=== PATIENT | female | born 1945 | race Caucasian/White ===

== ENCOUNTER 2017-02-09 15:44 | Emergency (ER) | payer MEDICARE, OTHER ==
[~2017-02-09] VITALS: Ht 160 cm; Wt 70.0 kg
[2017-02-09 16:09] VITALS: BP 158/70; PULSE 76; RESP 17; TEMP 97.8; O2SAT 96
--- NOTE | 2017-02-09 16:18 | PD ---
HPI Chief Complaint: Fall Time Seen by Provider: 16:14 Travel History International Travel<30 days: No Contact w/Intl Traveler<30days: No Traveled to known affect area: No History of Present Illness HPI 71-year-old female with history of stroke, aphasia, and inability to move extremities, is brought to emergency department status post witnessed fall from wheelchair all nursing staff were changing her bed. Patient fell forward and sideways out of the wheelchair onto the floor, injuring her anterior forehead and apparently her right upper cheek. Patient is unable to complain or tell me if pain. She is otherwise at her baseline. She is allergic to Haldol. PFSH Past Medical History ?: Not Social History Alcohol Use: No Tobacco Use: No Substance Use: No Allergies-Medications (Allergen,Severity, Reaction): Coded Allergies: Haldol (Verified Allergy, Unknown, unknown, 02/09/17) Reported Meds & Prescriptions Reported Meds & Active Scripts Active Reported Humulin R Inj (Insulin Human Regular) 1,000 Unit/10 Ml Vial 5 Units SQ HS Dulcolax Supp (Bisacodyl) 10 Mg Supp 10 Mg RECTAL DAILY PRN Milk of Magnesia Liq (Magnesium Hydroxide) 400 Mg/5 Ml Susp 30 Ml PO HS PRN Enema Disposable (Sodium Phosphates) 1 Sully Sully 1 Applic RECTAL DAILY PRN Citroma Liq (Magnesium Citrate) 300 Ml Liq 300 Ml PO DAILY PRN Amlodipine-Atorvastatin 10-10 Mg Tab 1 Tab G-TUBE HS Aspirin Adult Low Strength (Aspirin) 81 Mg Tabdr 81 Mg G-TUBE DAILY Galantamine (Galantamine Hydrobromide) 8 Mg Tab 8 Mg G-TUBE DAILY IN THE PM Multivitamin Liq (Multiple Vitamins W/ Minerals Liq) 1 Liq Liq 5 Ml G-TUBE DAILY Tylenol (Acetaminophen) 325 Mg Tab 650 Mg PO Q4H PRN Lactobacillus Acidophilus 1 Tab Tab 1 Tab G-TUBE BID Namenda (Memantine) 10 Mg Tab 10 Mg G-TUBE BID Metformin (Metformin HCl) 500 Mg Tab 500 Mg G-TUBE BID With meals Review of Systems ROS Limitations: Unresponsive Except as stated in HPI: all other systems reviewed are Neg General / Constitutional: No: Fever Eyes: No: Visual changes HENT: No: Headaches Cardiovascular: No: Chest Pain or Discomfort Respiratory: No: Shortness of Breath Gastrointestinal: No: Abdominal Pain Genitourinary: No: Dysuria Musculoskeletal: No: Pain Skin: No Rash Neurologic: No: Weakness Psychiatric: No: Depression Endocrine: No: Polydipsia Hematologic/Lymphatic: No: Easy Bruising Physical Exam Exam Limitations: Clinical Condition Narrative GENERAL: Patient is at her baseline unresponsive. She does open her eyes and focus. She grimaces with pain with palpation of the bump on the right forehead. SKIN: Warm and dry. No open wounds or abrasions. Normal color. Normal turgor. Patient has a large swollen ecchymosis to the right upper forehead and question right upper cheek HEAD: Normocephalic. CT scan. EYES: Pupils equal and round. No scleral icterus. No injection or drainage. ENT: No nasal bleeding or discharge. I'm unable to open the patient's mouth for inspection. NECK: Trachea midline. No JVD. No obvious bony tenderness or step-off. Range of motion limited due to patient's clinical condition. CARDIOVASCULAR: Regular rate and rhythm. RESPIRATORY: No accessory muscle use. Clear to auscultation. Breath sounds equal bilaterally. GASTROINTESTINAL: Abdomen soft, non-tender, nondistended. Hepatic and splenic margins not palpable. MUSCULOSKELETAL: Extremities without clubbing, cyanosis, or edema. No obvious deformities. No obvious signs of fracture or dislocation to upper or lower extremities. NEUROLOGICAL: Awake and alert. No obvious cranial nerve deficits. Patient does not move her extremities normally secondary to previous CVA. She is aphasic. PSYCHIATRIC: Unable to be assessed. Data Data Last Documented VS Vital Signs Date Time Temp Pulse Resp B/P Pulse Ox O2 Delivery O2 Flow Rate FiO2 02/09/17 16:15 Room Air 02/09/17 16:09 97.8 76 17 158/[address] Brain W/O Iv Contrast(Rout) (02/09/17 16:10) Ct Cerv Spine W/O Contrast (02/09/17 16:10) Ct Facial Bones W/O Iv Cont (02/09/17 16:10) [facility] Medical Decision Making Medical Screen Exam Complete: Yes Emergency Medical Condition: Yes Differential Diagnosis Fall from wheelchair. Head contusion. Intracranial bleed. Facial fracture. Neck fracture. Narrative Course Patient is medically stable at time of exam. CT of the head and neck and facial bones are ordered. Further lab work not felt warranted based on the history. Head CT shows large hematoma to the right anterior forehead, but no acute intracranial bleed or fracture. CT of the neck and facial bones are negative per radiologist. Patient felt stable to be discharged back to nursing facility. No change in medications is warranted. Patient be followed by her primary care physician or return to the emergency department as needed. Diagnosis Primary Impression: Fall involving wheelchair as cause of accidental injury Qualified Code: W05.0XXA - Fall involving wheelchair as cause of accidental injury, initial encounter Additional Impression: Contusion of scalp, initial encounter Referrals: Primary Care Physician Patient Instructions: General Instructions, Scalp Contusion in Adults (ED) Additional Instructions: Head CT shows large hematoma to the right anterior forehead, but no acute intracranial bleed or fracture. CT of the neck and facial bones are negative per radiologist. Patient felt stable to be discharged back to nursing facility. No change in medications is warranted. Patient be followed by her primary care physician or return to the emergency department as needed. Med/Other Pt SpecificInfo: No Change to Meds, No Meds Exist/No RX given Disposition: 03 DISCHARGE TO SNF Condition: Stable Tahir Diehl Feb 09, 2017 16:18
[2017-02-09] MEDS ORDERED: ASPI1TAB91 G-TUBE (16:35)
[2017-02-09] MEDS ORDERED: INSU100V2 SQ (16:35)
[2017-02-09] MEDS ORDERED: GALA8TAB G-TUBE (16:35)
[2017-02-09] MEDS ORDERED: MILKSUS G-TUBE (16:35)
[2017-02-09] MEDS ORDERED: AMLO1TAB34 G-TUBE (16:35)
[2017-02-09] MEDS ORDERED: CITRSOL4 PO (16:35)
[2017-02-09] MEDS ORDERED: MULTLIQ7 G-TUBE (16:35)
[2017-02-09] MEDS ORDERED: ENEMENE5 RECTAL (16:35)
[2017-02-09] MEDS ORDERED: DULC10SU3 RECTAL (16:35)
[2017-02-09] MEDS ORDERED: METF500T G-TUBE (16:35)
[2017-02-09] MEDS ORDERED: TYLE325T G-TUBE (16:35)
[2017-02-09] MEDS ORDERED: LACTTAB8 G-TUBE (16:35)
[2017-02-09] MEDS ORDERED: NAME10TA G-TUBE (16:35)
--- NOTE | 2017-02-09 17:30 | RADRPT ---
EXAM DATE/TIME: 02/09/2017 16:55 [facility] COMPARISON: No previous studies available for comparison. INDICATIONS : Trauma. Fell out of wheelchair. Contusion to right forehead. RADIATION DOSE: 32.47 CTDIvol (mGy) MEDICAL HISTORY : Alzheimer's Hypertension. SURGICAL HISTORY : None. ENCOUNTER: Initial ACUITY: 1 day PAIN SCALE: Non-responsive LOCATION: Right cranial TECHNIQUE: Multiple contiguous axial images were obtained of the head. Using automated exposure control and adj ustment of the mA and/or kV according to patient size, radiation dose was kept as low as reasonably a chievable to obtain optimal diagnostic quality images. FINDINGS: There is a frontal scalp hematoma. No intracranial mass, hemorrhage or shift. Moderate hydrocephalus. Cortical volume loss. CONCLUSION: 1. Frontal scalp hematoma. No intracranial hemorrhage. Hydrocephalus. No prior study for comparison. Ta Isbell MD on February 09, 2017 at 17:24 Board Certified Radiologist. This report was verified electronically.
--- NOTE | 2017-02-09 17:46 | RADRPT ---
EXAM DATE/TIME: 02/09/2017 16:55 [facility] COMPARISON: No previous studies available for comparison. INDICATIONS : Trauma. Fell out of wheelchair. Contusion to right forehead. RADIATION DOSE: 21.06 CTDIvol (mGy) MEDICAL HISTORY : Alzheimer's Hypertension. SURGICAL HISTORY : None. ENCOUNTER: Initial ACUITY: 1 day PAIN SCALE: Non-responsive LOCATION: neck TECHNIQUE: Volumetric scanning of the cervical spine was performed. Multiplanar reconstructions in the sagittal, coronal and oblique axial planes were performed. Using automated exposure control and adjustment o f the mA and/or kV according to patient size, radiation dose was kept as low as reasonably achievable to obtain optimal diagnostic quality images. FINDINGS: No fracture or spondylolisthesis. No prevertebral soft tissue swelling. Moderate degenerative disc di sease and facet arthropathy. CONCLUSION: 1. No acute findings. No significant canal stenosis. Moderate degenerative disc disease. Ta Isbell MD on February 09, 2017 at 17:42 Board Certified Radiologist. This report was verified electronically.
--- NOTE | 2017-02-09 17:47 | RADRPT ---
EXAM DATE/TIME: 02/09/2017 16:55 [facility] COMPARISON: No previous studies available for comparison. INDICATIONS : Trauma. Fell out of wheelchair. Contusion to right forehead. RADIATION DOSE: 38.18 CTDIvol (mGy) MEDICAL HISTORY : Alzheimer's Hypertension. SURGICAL HISTORY : None. ENCOUNTER: Initial ACUITY: 1 day PAIN SCORE: Non-responsive LOCATION: Right facial TECHNIQUE: Volumetric scanning of the facial bones was performed. Using automated exposure control and adjustme nt of the mA and/or kV according to patient size, radiation dose was kept as low as reasonably achiev able to obtain optimal diagnostic quality images. FINDINGS: There is frontal scalp swelling. No acute fracture identified. There is opacification of the right ma xillary sinus and partial opacification of the right ethmoid air cells. Mastoids are clear. CONCLUSION: No acute bony abnormalities. Frontal scalp swelling. Opacification of right maxillary sinus. Ta Isbell MD on February 09, 2017 at 17:44 Board Certified Radiologist. This report was verified electronically.
[2017-02-09 18:10] VITALS: BP 114/64; PULSE 76; RESP 17; O2SAT 97
[2017-02-09 19:11] VITALS: BP 115/63; PULSE 92; RESP 18; O2SAT 96
== END 2017-02-09 20:59 ==
LOC: NEPE 15:44
DX: S00.03XA Contusion of scalp, initial encounter (principal); I69.320 Aphasia following cerebral infarction; I69.393 Ataxia following cerebral infarction; W05.0XXA Fall from non-moving wheelchair, initial encounter; Y93.89 Activity, other specified; Y92.122 Bedroom in nursing home as the place of occurrence of the external cause; Y99.8 Other external cause status
CPT/HCPCS: 70450; 70486; 72125

== ENCOUNTER 2017-02-25 09:53 | Inpatient (IN) | payer MEDICARE, OTHER ==
[~2017-02-25] VITALS: Ht 157.5 cm; Wt 58.5 kg
[2017-02-25] VITALS (11 sets, daily range): BP systolic 94–132; BP diastolic 56–80; PULSE 103–144; RESP 20–44; TEMP 97–103.3; O2SAT 94–100
[~2017-02-25 09:53] MED LIST: AMLO1TAB34 G-TUBE; ASPI1TAB91 G-TUBE; CITRSOL4 PO; DULC10SU3 RECTAL; ENEMENE5 RECTAL; GALA8TAB G-TUBE; INSU100V2 SQ; LACTTAB8 G-TUBE; METF500T G-TUBE; MILKSUS G-TUBE; MULTLIQ7 G-TUBE; NAME10TA G-TUBE; TYLE325T G-TUBE
[2017-02-25] MEDS ORDERED: SODIUM CHLOR 0.9% 1000 ML INJ 800 ML IV ONE (10:00)
[2017-02-25] MEDS ORDERED: VANCOMYCIN INJ 1 MG in SODIUM CHLOR 0.9% 250 ML INJ 250 ML IV STA (10:00)
[2017-02-25] MEDS ORDERED: ACETAMINOPHEN 650 MG SUPP RECTAL ONE (10:00)
[2017-02-25] MEDS ORDERED: SODIUM CHLOR 0.9% 1000 ML INJ 1,000 ML IV ONE ×4 (10:00→17:00)
[2017-02-25] MEDS ORDERED: CEFEPIME INJ 2,000 MG in SODIUM CHLORIDE 0.9% INJ 100 ML IV STA (10:00)
[2017-02-25 10:04] LABS: BLOOD GAS BASE EXCESS 1.7 mmol/L (-2-2); BLOOD GAS CARBOXYHEMOGLOBIN 1.2 % (0-4); BLOOD GAS HCO3 24 mmol/L (22-26); BLOOD GAS METHEMOGLOBIN 0.3 % (0-2); BLOOD GAS O2 HGB SATURATION 94 % (90-100); BLOOD GAS OXYGEN CONTENT 19.2 Vol % (12.0-20.0); BLOOD GAS PCO2 27 mmHg (38-42); BLOOD GAS PO2 67 mmHG (61-120); BLOOD GAS TOTAL HGB 14.6 G/DL (12.0-16.0); CRITICAL VALUE YES; TEMP CORR TO 98.6
[2017-02-25 10:05] LABS: DRAW SITE LT RADIAL; FIO2 100 %; NUMBER OF ARTERIAL PUNCTURES 1; STAT YES; ULNAR PULSE PRESENT
[2017-02-25 10:23] LABS: AUTOMATED NEUTROPHIL # 15.3 TH/MM3 (1.8-7.7); BASOPHIL # 0.1 TH/MM3 (0-0.2); BASOPHIL % 0.3 % (0.0-2.0); HEMATOCRIT 44.2 % (35.0-46.0); HEMO FLAGS DIFF FINAL; LYMPH % 9.5 % (9.0-44.0); LYMPHOCYTE # 1.7 TH/MM3 (1.0-4.8); MEAN CELL VOLUME 89.6 FL (80.0-100.0); MEAN CORPUSCULAR HEMOGLOBIN 29.3 PG (27.0-34.0); MEAN CORPUSCULAR HGB CONC 32.7 % (32.0-36.0); MONO % 6.3 % (0.0-8.0); NEUT % 83.9 % (16.0-70.0); PLATELET COUNT 176 TH/MM3 (150-450); RED BLOOD COUNT 4.93 MIL/MM3 (4.00-5.30); RED CELL DISTRIBUTION WIDTH 15.5 % (11.6-17.2); WHITE BLOOD COUNT 18.2 TH/MM3 (4.0-11.0)
[2017-02-25] MEDS ORDERED: DILTIAZEM INJ 125 MG in SODIUM CHLORIDE 0.9% INJ 100 ML IV SCH (10:30)
[2017-02-25] MEDS ORDERED: DILTIAZEM HCL 25 MG/5 ML VIAL IV ONE ×3 (10:30→12:45)
[2017-02-25 10:35] LABS: BACTERIA, URINE RARE /hpf; BLOOD, URINE TRACE (NEG); COMMENT (UR) CATH-CULTURE IND; CULTURE IF INDICATED CATH CULTURE IND; GLUCOSE,URINE 1000 mg/dL (NEG); KETONE, URINE NEG (NEG); MUCUS URINE FEW /lpf (OCC); NITRITE,URINE NEG (NEG); PH, URINE 5.5 (5.0-8.5); SQUAMOUS EPITHELIAL CELL URINE 5 /hpf (0-5); URINE COLOR YELLOW (YELLW/STRAW)
[2017-02-25 10:42] LABS: ALT (GPT) 31 U/L (10-53); ANION GAP 7 MEQ/L (5-15); BLOOD UREA NITROGEN 46 MG/DL (7-18); CHLORIDE 114 MEQ/L (98-107); GLOMERULAR FILTRATION RATE 56 ML/MIN (>89); POTASSIUM 3.9 MEQ/L (3.5-5.1); SODIUM (NA) 149 MEQ/L (136-145)
[2017-02-25 10:58] LABS: ALKALINE PHOSPHATASE 77 U/L (45-117); AST (GOT) 17 U/L (15-37); TOTAL BILIRUBIN ADULT 0.7 MG/DL (0.2-1.0)
[2017-02-25] MEDS: RESP: ALBUTEROL 2.5 MG/3 ML NEB (SCH) INH (11:03)
--- NOTE | 2017-02-25 11:11 | RADRPT ---
EXAM DATE/TIME: 02/25/2017 10:46 [facility] COMPARISON: CT BRAIN W/O CONTRAST, February 09, 2017, 16:55. INDICATIONS : Bruise to right side of head, RADIATION DOSE: 56.35 CTDIvol (mGy) MEDICAL HISTORY : Hypertension. Diabetes mellitus type 1. SURGICAL HISTORY : None. ENCOUNTER: Initial ACUITY: 1 day PAIN SCALE: Non-responsive LOCATION: cranial TECHNIQUE: Multiple contiguous axial images were obtained of the head. Using automated exposure control and adj ustment of the mA and/or kV according to patient size, radiation dose was kept as low as reasonably a chievable to obtain optimal diagnostic quality images. FINDINGS: Note is again made of moderate symmetric ventriculomegaly. An old lacunar infarct is present in the r ight roberts are. There is no evidence of intracranial hemorrhage or mass. There is nothing to suggest acute infarction. Complete opacification of the right maxillary sinus and a couple of adjacent ethmo id sinuses is again noted. There is mild right frontal scalp swelling without evidence of underlying skull fracture. CONCLUSION: No acute intracranial injury. Stable moderate ventriculomegaly Darien Vergara MD on February 25, 2017 at 11:07 Board Certified Radiologist. This report was verified electronically.
--- NOTE | 2017-02-25 11:19 | RADRPT ---
EXAM DATE/TIME: 02/25/2017 10:58 [facility] COMPARISON: No previous studies available for comparison. INDICATIONS : Fever, altered mental status, short of breath MEDICAL HISTORY : unobtainable SURGICAL HISTORY : unobtainable ENCOUNTER: Initial ACUITY: 1 day PAIN SCORE: Non-responsive. LOCATION: Bilateral chest FINDINGS: There is mild infiltrate in the left lung base. No significant effusion. Cardiac contours are grossly satisfactory. CONCLUSION: Mild left base parenchymal opacity Darien Vergara MD on February 25, 2017 at 11:16 Board Certified Radiologist. This report was verified electronically.
[2017-02-25 12:15] LABS: LACTIC ACID GHOST NOT REPORTABLE
--- NOTE | 2017-02-25 12:37 | PD ---
HPI Chief Complaint: Respiratory Distress Time Seen by Provider: 10:00 Travel History International Travel<30 days: No Contact w/Intl Traveler<30days: No Traveled to known affect area: No History of Present Illness HPI 71-year-old female arrives from custodial facility due to dyspnea and a decline in mental status. Upon arrival to the longterm the patient was found to be somewhat hypoxic with an O2 sat of 85% on nasal cannula. EMS applied face mask/nonrebreather and the patient's oxygen saturation increased to the low 90s en route to the ER. The patient has dementia and is nonverbal at baseline limiting the history. The son arrived later in the ER course and reports the patient has been undergoing treatment for urinary tract infection. Long discussion at the bedside with the patient's son, who is the next of kin, who requests DNR. He states the patient would not want to be on a ventilator. PFSH Past Medical History Alzheimer's Disease: Yes High Cholesterol: Yes Diabetes: Yes Patient Takes Glucophage: No (uto) Hypertension: Yes Medical other: Yes (uto, waitinjg for paperwork from [facility]) Influenza Vaccination: No (uto) Menopausal: Yes Past Surgical History Abdominal Surgery: Yes (G-TUBE PLACEMENT) Body Medical Devices: g tube Social History Alcohol Use: No Tobacco Use: No Substance Use: No Allergies-Medications (Allergen,Severity, Reaction): Coded Allergies: Haldol (Verified Allergy, Unknown, unknown, 02/25/17) Reported Meds & Prescriptions Reported Meds & Active Scripts Active Reported Humulin R Inj (Insulin Human Regular) 1,000 Unit/10 Ml Vial 5 Units SQ HS Dulcolax Supp (Bisacodyl) 10 Mg Supp 10 Mg RECTAL DAILY PRN Milk of Magnesia Liq (Magnesium Hydroxide) 400 Mg/5 Ml Susp 30 Ml PO HS PRN Enema Disposable (Sodium Phosphates) 1 Sully Sully 1 Applic RECTAL DAILY PRN Citroma Liq (Magnesium Citrate) 300 Ml Liq 300 Ml PO DAILY PRN Amlodipine-Atorvastatin 10-10 Mg Tab 1 Tab G-TUBE HS Aspirin Adult Low Strength (Aspirin) 81 Mg Tabdr 81 Mg G-TUBE DAILY Galantamine (Galantamine Hydrobromide) 8 Mg Tab 8 Mg G-TUBE DAILY IN THE PM Multivitamin Liq (Multiple Vitamins W/ Minerals Liq) 1 Liq Liq 5 Ml G-TUBE DAILY Tylenol (Acetaminophen) 325 Mg Tab 650 Mg PO Q4H PRN Lactobacillus Acidophilus 1 Tab Tab 1 Tab G-TUBE BID Namenda (Memantine) 10 Mg Tab 10 Mg G-TUBE BID Metformin (Metformin HCl) 500 Mg Tab 500 Mg G-TUBE BID With meals Review of Systems ROS Limitations: Clinical Condition Physical Exam Narrative GENERAL: 71-year-old female chronically ill in appearance, mild distress SKIN: Focused skin assessment warm/dry. HEAD: Atraumatic. Normocephalic. EYES: Pupils equal and round. No scleral icterus. No injection or drainage. ENT: No nasal bleeding or discharge. Mucous membranes pink and moist. NECK: Trachea midline. No JVD. CARDIOVASCULAR: Tachycardia. Regular. RESPIRATORY: Tachypnea. Coarse breath sounds in the left side. GASTROINTESTINAL: Abdomen soft, non-tender, nondistended. Hepatic and splenic margins not palpable. MUSCULOSKELETAL: No obvious deformities. No clubbing. No cyanosis. No edema. NEUROLOGICAL: Patient is nonverbal. Occasional tremors observed in the right lower extremity. PSYCHIATRIC: Unable to assess. Data Data Last Documented VS Vital Signs Date Time Temp Pulse Resp B/P Pulse Ox O2 Delivery O2 Flow Rate FiO2 02/25/17 11:26 117 28 122/67 100 BiPAP 02/25/17 11:07 40 02/25/17 10:00 15 02/25/17 09:55 103.3 Vital signs reviewed Orders Complete Blood Count With Diff (02/25/17 10:00) Comprehensive Metabolic Panel (02/25/17 10:00) Lactic Acid Sepsis Protocol (02/25/17 10:00) Urinalysis - C+S If Indicated (02/25/17 10:00) Blood Culture (02/25/17 10:00) Chest, Single Ap (02/25/17 10:00) Arterial Blood Gas (Abg) (02/25/17 10:00) Blood Glucose (02/25/17 10:00) Ecg Monitoring (02/25/17 10:00) Iv Access Insert/Monitor (02/25/17 10:00) Oximetry (02/25/17 10:00) Oxygen Administration (02/25/17 10:00) Vancomycin Inj (Vancomycin Inj) (02/25/17 10:00) Cefepime Inj (Maxipime Inj) (02/25/17 10:00) Acetaminophen Supp (Tylenol Supp) (02/25/17 10:00) Sodium Chlor 0.9% 1000 Ml Inj (Ns 1000 M (02/25/17 10:00) Sodium Chlor 0.9% 1000 Ml Inj (Ns 1000 M (02/25/17 10:00) Ct Brain W/O Iv Contrast(Rout) (02/25/17 10:09) Albuterol Neb (Albuterol Neb) (02/25/17 10:30) Resp Bipap / Cpap Non Invas Vt (02/25/17 10:26) Diltiazem Inj (Cardizem Inj) (02/25/17 10:30) Diltiazem Inj (Cardizem Inj) (02/25/17 10:30) Diltiazem Inj (Cardizem Inj) (02/25/17 10:30) Urine Culture (02/25/17 10:10) Electrocardiogram (02/25/17 ) Sodium Chlor 0.9% 1000 Ml Inj (Ns 1000 M (02/25/17 12:15) Sodium Chlor 0.9% 1000 Ml Inj (Ns 1000 M (02/25/17 12:45) Diltiazem Inj (Cardizem Inj) (02/25/17 12:45) Admit Order (Ed Use Only) (02/25/17 12:45) Labs Laboratory Tests Test 02/25/17 02/25/17 02/25/17 02/25/17 09:53 10:05 10:08 10:10 Blood Gas Puncture Site LT RADIAL Blood Gas Patient Temperature 98.6 Blood Gas HCO3 24 mmol/L Blood Gas Base Excess 1.7 mmol/L Blood Gas Oxygen Saturation 94 % Arterial Blood pH 7.56 Arterial Blood Partial 27 mmHg Pressure CO2 Arterial Blood Partial 67 mmHG Pressure O2 Arterial Blood Oxygen Content 19.2 Vol % Arterial Blood 1.2 % Carboxyhemoglobin Arterial Blood Methemoglobin 0.3 % Blood Gas Hemoglobin 14.6 G/DL Oxygen Delivery Device Non-Rebreathing Mask Blood Gas Inspired Oxygen 100 % White Blood Count 18.2 TH/MM3 Red Blood Count 4.93 MIL/MM3 Hemoglobin 14.4 GM/DL Hematocrit 44.2 % Mean Corpuscular Volume 89.6 FL Mean Corpuscular Hemoglobin 29.3 PG Mean Corpuscular Hemoglobin 32.7 % Concent Red Cell Distribution Width 15.5 % Platelet Count 176 TH/MM3 Mean Platelet Volume 10.9 FL Neutrophils (%) (Auto) 83.9 % Lymphocytes (%) (Auto) 9.5 % Monocytes (%) (Auto) 6.3 % Eosinophils (%) (Auto) 0.0 % Basophils (%) (Auto) 0.3 % Neutrophils # (Auto) 15.3 TH/MM3 Lymphocytes # (Auto) 1.7 TH/MM3 Monocytes # (Auto) 1.2 TH/MM3 Eosinophils # (Auto) 0.0 TH/MM3 Basophils # (Auto) 0.1 TH/MM3 CBC Comment DIFF FINAL Differential Comment Sodium Level 149 MEQ/L Potassium Level 3.9 MEQ/L Chloride Level 114 MEQ/L Carbon Dioxide Level 28.0 MEQ/L Anion Gap 7 MEQ/L Blood Urea Nitrogen 46 MG/DL Creatinine 0.97 MG/DL Estimat Glomerular Filtration 56 ML/MIN Rate Random Glucose 378 MG/DL Calcium Level 8.5 MG/DL Total Bilirubin 0.7 MG/DL Aspartate Amino Transf 17 U/L (AST/SGOT) Alanine Aminotransferase 31 U/L (ALT/SGPT) Alkaline Phosphatase 77 U/L Total Protein 7.2 GM/DL Albumin 2.6 GM/DL Lactic Acid Level 3.7 mmol/L Urine Color YELLOW Urine Turbidity HAZY Urine pH 5.5 Urine Specific [place] 1.024 Urine Protein TRACE mg/dL Urine Glucose (UA) 1000 mg/dL Urine Ketones NEG mg/dL Urine Occult Blood TRACE Urine Nitrite NEG Urine Bilirubin NEG Urine Urobilinogen LESS THAN 2.0 MG/DL Urine Leukocyte Esterase NEG Urine RBC 1 /hpf Urine WBC 1 /hpf Urine Squamous Epithelial 5 /hpf Cells Urine Bacteria RARE /hpf Urine Mucus FEW /lpf Microscopic Urinalysis Comment CATH-CULTURE IND MDM Medical Decision Making Medical Screen Exam Complete: Yes Emergency Medical Condition: Yes Medical Record Reviewed: Yes Differential Diagnosis Sepsis, UTI, pneumonia, renal failure, anemia, intracranial injury/bleed/anoxia Narrative Course CBC & BMP Diagram 02/25/17 10:05 Lactic acid 3.7 LFTs normal UA: No UTI AB.56 / 27 / 24 pO2 67 on NRB EKG: rate 144, sinus, Last [address] 02/25/17 1009 Signed Impressions: Service Date/Time: Saturday, February 25, 2017 10:46 - CONCLUSION: No acute intracranial injury. Stable moderate ventriculomegaly aDrien Vergara MD Chest X-Ray 02/25/17 1000 Signed Impressions: Service Date/Time: Saturday, February 25, 2017 10:58 - CONCLUSION: Mild left base parenchymal opacity Darien Vergara MD Cefepime Vanco started. 2 L saline started. Tylenol given. Patient has sepsis due to left base pneumonia. The patient is a DNR per son's request after we had a long discussion. BiPAP was started and the patient's O2 sat increased to 100%. Patient's BiPAP was started on 40% and her O2 sat remained 98% upon reassessment at 1:14 PM. The patient will be admitted to the ICU for management of severe sepsis due to pneumonia. Critical Care Narrative Aggregate critical care time was 40 minutes. Time to perform other separately billable procedures was not included in the critical care time. My time did not include minutes spent treating any other patients simultaneously or on activities that did not directly contribute to the patient's treatment. The services I provided to this patient were to treat and/or prevent clinically significant deterioration that could result in: Pulmonary arrest, multi-organ injury I provided critical care services requiring my management, as noted below: Chart data review, documentation time, medication orders and management, vital sign assessments/reviewing monitor data, ordering and reviewing lab tests, ordering and interpreting/reviewing x-rays and diagnostic studies, care of the patient and discussion of the patient with the admitting physicians. Sepsis Criteria SIRS Criteria (2 or more): Temp > 100.9 or < 96.8, Heart rate over 90, RR > 20 or PaCO2 < 32, WBC > 54858, < 4000 or > 10% bands Sepsis Criteria (SIRS+source): Infect source susp/known Severe Sepsis (+one): Lactate >2 Diagnosis Primary Impression: Sepsis due to pneumonia Additional Impression: Severe sepsis Admitting Information Admitting Physician Requests: Admit Ranjan Knight MD February 25, 2017 12:37
[2017-02-25] MEDS ORDERED: ASPI81CH37 G-TUBE (14:46)
[2017-02-25] MEDS ORDERED: GLYB1TAB93 G-TUBE (14:46)
[2017-02-25] MEDS ORDERED: ONDANSETRON HCL 4 MG/2 ML VIAL IVP PRN (15:00)
[2017-02-25] MEDS ORDERED: NALOXONE HCL 0.4 MG/ML AMP IV PRN (15:00)
[2017-02-25] MEDS ORDERED: SODIUM CHLORIDE 0.9% FLUSH 10 ML FLUSH IV FLUSH PRN (15:00)
[2017-02-25] MEDS ORDERED: ACETAMINOPHEN 325 MG TAB PO PRN (15:00)
[2017-02-25] MEDS ORDERED: RESP: ALBUTEROL 2.5 MG/IPRATROPIUM 0.5 MG NEB (PRN) NEB (15:00)
[2017-02-25] MEDS ORDERED: Vancomycin Consult Pharmacy 1 EA OTHER SCH (15:00)
[2017-02-25] MEDS: RESP: ALBUTEROL 2.5 MG/IPRATROPIUM 0.5 MG NEB (SCH) NEB ×2 (15:34→20:37)
[2017-02-25] MEDS: LEVOFLOXACIN 750 MG PREMIX INJ 150 ML IV SCH (16:29)
[2017-02-25] MEDS ORDERED: GLUCAGON 1 MG/ML VIAL OTHER PRN (16:30)
[2017-02-25] MEDS ORDERED: DEXTROSE 50% IN WATER 50 ML VIAL(D50) IV PUSH PRN (16:30)
[2017-02-25] MEDS: HEPARIN SODIUM - SQ 10,000 UNITS/ML VIAL SQ SCH ×2 (16:31→22:29)
--- NOTE | 2017-02-25 16:38 | EKG ---
Date Performed: 02/25/2017 Time Performed: 10:01:09 PTAGE: 71 years EKG: ECTOPIC ATRIAL TACHYCARDIA DIFFUSE NONSPECIFIC T WAVE ABNORMALITIES BORDERLINE RIGHT AXIS D EVIATION POSSIBLE ANTERIOR MYOCARDIAL INFARCTION POSSIBLE INFERIOR MYOCARDIAL INFARCTION ABNORMAL RHY THM ECG NO PREVIOUS TRACING DOCTOR: Romel Polo Interpretating Date/Time 02/25/2017 16:35:55
[2017-02-25] MEDS: SODIUM CHLOR 0.9% 1000 ML INJ 1,000 ML IV SCH ×2 (16:51→22:29)
[2017-02-25] MEDS: methylPREDNISolone SOD SUCC 40 MG/1 ML VIAL IV SCH (16:51)
--- NOTE | 2017-02-25 16:51 | HHI.HP ---
[facility] Service [facility] Primary Care Physician No Primary Care Physician Admission Diagnosis Sepsis (PNA) Diagnoses: Chief Complaint: Short of breath Travel History International Travel<30 Days: No Contact w/Intl Traveler <30 Da: No Traveled to Known Affected Are: No History of Present Illness 71 years old female with history of Alzheimer'sHyperlipidemia diabetes mellitus , who recently moved from [place] with her son and she is a [facility] resident brought to the ED due to worsening short of breath, patient was found to have a fever of 103 leukocytosis of 18 K with left shift and lactic acid of 3.5. Patient was given iv fluid in ED I discussed with the ED physician who notified me that patient's son does not want intubation. I saw the patient in the ED room discussed with the son who confirmed to me patient wished not to have intubation or aggressive resuscitation he also asked consult hospice to discuss with them, he is more leaning toward comfort care. Review of Systems ROS Limitations: Clinical Condition, Altered Mental Status Past Family Social History Past Medical History As in history of present illness Past Surgical History G -tube placement Allergies: Coded Allergies: Haldol (Verified Allergy, Unknown, unknown, 02/25/17) Family History Unobtainable Social History Unobtainable Physical Exam Vital Signs Vital Signs Date Time Temp Pulse Resp B/P Pulse Ox O2 Delivery O2 Flow Rate FiO2 02/25/17 15:35 97 40 02/25/17 14:21 99.3 115 35 114/66 99 BiPAP 40 02/25/17 12:50 100.8 123 28 132/73 98 BiPAP 02/25/17 11:26 117 28 122/67 100 BiPAP 02/25/17 11:07 121 28 128/72 100 BiPAP 40 02/25/17 11:05 98 40 02/25/17 10:00 94 Non-Rebreather 15 02/25/17 09:55 103.3 144 44 118/80 94 Physical Exam GENERAL: This is a chronically ill appearing 70 years old female on BiPAP looks in respiratory distress looks obtunded SKIN: No rashes, warm and dry HEAD: Atraumatic. Normocephalic. EYES: Pupils equal round and reactive. ENT: Nose without bleeding, or drainage, Airway patent. NECK: Trachea midline. Supple CARDIOVASCULAR: Regular tachycardia RESPIRATORY: Fair air entry bilaterally. With using respiratory muscles GASTROINTESTINAL: Abdomen soft, non-tender, nondistended. Positive bowel sounds MUSCULOSKELETAL: Extremities without clubbing, cyanosis, or edema. Pedal pulses appreciated NEUROLOGICAL: Patient lethargic she is having lower extremity upper extremity spontaneous movement nonpurposeful Laboratory Laboratory Tests Test 02/25/17 02/25/17 02/25/17 02/25/17 09:53 10:05 10:08 10:10 Blood Gas Puncture Site LT RADIAL Blood Gas Patient Temperature 98.6 Blood Gas HCO3 24 Blood Gas Base Excess 1.7 Blood Gas Oxygen Saturation 94 Arterial Blood pH 7.56 Arterial Blood Partial 27 Pressure CO2 Arterial Blood Partial 67 Pressure O2 Arterial Blood Oxygen Content 19.2 Arterial Blood 1.2 Carboxyhemoglobin Arterial Blood Methemoglobin 0.3 Blood Gas Hemoglobin 14.6 Oxygen Delivery Device Non-Rebreathing Mask Blood Gas Inspired Oxygen 100 White Blood Count 18.2 Red Blood Count 4.93 Hemoglobin 14.4 Hematocrit 44.2 Mean Corpuscular Volume 89.6 Mean Corpuscular Hemoglobin 29.3 Mean Corpuscular Hemoglobin 32.7 Concent Red Cell Distribution Width 15.5 Platelet Count 176 Mean Platelet Volume 10.9 Neutrophils (%) (Auto) 83.9 Lymphocytes (%) (Auto) 9.5 Monocytes (%) (Auto) 6.3 Eosinophils (%) (Auto) 0.0 Basophils (%) (Auto) 0.3 Neutrophils # (Auto) 15.3 Lymphocytes # (Auto) 1.7 Monocytes # (Auto) 1.2 Eosinophils # (Auto) 0.0 Basophils # (Auto) 0.1 CBC Comment DIFF FINAL Differential Comment Sodium Level 149 Potassium Level 3.9 Chloride Level 114 Carbon Dioxide Level 28.0 Anion Gap 7 Blood Urea Nitrogen 46 Creatinine 0.97 Estimat Glomerular Filtration 56 Rate Random Glucose 378 Calcium Level 8.5 Total Bilirubin 0.7 Aspartate Amino Transf 17 (AST/SGOT) Alanine Aminotransferase 31 (ALT/SGPT) Alkaline Phosphatase 77 Total Protein 7.2 Albumin 2.6 Lactic Acid Level 3.7 Urine Color YELLOW Urine Turbidity HAZY Urine pH 5.5 Urine Specific [place] 1.024 Urine Protein TRACE Urine Glucose (UA) 1000 Urine Ketones NEG Urine Occult Blood TRACE Urine Nitrite NEG Urine Bilirubin NEG Urine Urobilinogen LESS THAN 2.0 Urine Leukocyte Esterase NEG Urine RBC 1 Urine WBC 1 Urine Squamous Epithelial 5 Cells Urine Bacteria RARE Urine Mucus FEW Microscopic Urinalysis Comment CATH-CULTURE IND Test 02/25/17 15:36 Lactic Acid Level 5.2 Date/Time Procedure Status Source Growth 02/25/17 10:10 Urine Culture Received Urine Catheterized Urine Pending 02/25/17 10:08 Aerobic Blood Culture Received Blood Peripheral Pending 02/25/17 10:08 Anaerobic Blood Culture Received Blood Peripheral Pending Result Diagram: 02/25/17 1005 02/25/17 1005 Imaging Last Impressions Head CT 02/25/17 1009 Signed Impressions: Service Date/Time: Saturday, February 25, 2017 10:46 - CONCLUSION: No acute intracranial injury. Stable moderate ventriculomegaly Darien Vergara MD Chest X-Ray 02/25/17 1000 Signed Impressions: Service Date/Time: Saturday, February 25, 2017 10:58 - CONCLUSION: Mild left base parenchymal opacity Darien Vergara MD Assessment and Plan Assessment and Plan 71 years old female [facility] with Acute respiratory failure due to left base pneumonia HAP Severe sepsis due to LLL pneumonia HAP(fever 103, leukocytosis 18 K with left shift, tachycardia 123 and tachypnea, lactic acidosis) Acute metabolic Lactic acidosis 2.3 increased to 5, with the respiratory compensation, I personally reviewed ABG History of hypertension H/O diabetes mellitus Hyperlipidemia DVT prophylaxis Advance directive CODE STATUS changed to DNR per the son and the POA after discussion with me and the ED physician, nurse witnessed Plan: Admit IMC Started on iv fluid boluses and maintenance to help with the sepsis Broad Iv antibiotic cefepime Levaquin and Vanco DuoNeb, O2, Solu-Medrol iv BiPAP as needed Her symptoms are reviewed ABG and EKG showing metabolic acidosis with respiratory compensation PCO2 27, EKG showing sinus tachycardia No intubation per the son patient is DNR Vasotec for hypertension as needed Hospice consult her son requests Code Status DNR Discussed Condition With ED physician on the son who is the POA Physician Certification 2 Midnight Certification Type: Admission for Inpatient Services Order for Inpatient Services The services are ordered in accordance with Medicare regulations or non- Medicare payer requirements, as applicable. In the case of services not specified as inpatient-only, they are appropriately provided as inpatient services in accordance with the 2-midnight benchmark. Estimated LOS (days): 3 days is the estimated time the patient will need to remain in the hospital, assuming treatment plan goals are met and no additional complications. Post-Hospital Plan: Hospice Adeel Younger MD February 25, 2017 16:51 Adeel Younger MD February 25, 2017 16:51
[2017-02-25] MEDS ORDERED: LORazepam 2 MG/ML VIAL IV PUSH PRN (17:00)
[2017-02-25] MEDS ORDERED: ENALAPRILAT 1.25 MG/ML VIAL IV PUSH PRN (17:00)
[2017-02-25] MEDS: CEFEPIME INJ 2,000 MG in SODIUM CHLORIDE 0.9% INJ 100 ML IV SCH (22:29)
[2017-02-25] MEDS: INSULIN NovoLIN REGULAR SUPPLEMENTAL SCALE SQ SCH (22:30)
[2017-02-25] MEDS: SODIUM CHLORIDE 0.9% FLUSH 10 ML FLUSH IV FLUSH SCH (22:30)
[2017-02-26] VITALS (17 sets, daily range): BP systolic 101–117; BP diastolic 54–70; PULSE 81–98; RESP 19–22; TEMP 96.7–99; O2SAT 18–100
[2017-02-26] MEDS: SODIUM CHLOR 0.9% 1000 ML INJ 1,000 ML IV SCH (01:57)
[2017-02-26] MEDS: methylPREDNISolone SOD SUCC 40 MG/1 ML VIAL IV SCH ×2 (04:07→15:47)
[2017-02-26 06:04] LABS: AUTOMATED NEUTROPHIL # 13.2 TH/MM3 (1.8-7.7); BASOPHIL % 0.1 % (0.0-2.0); HEMATOCRIT 32.7 % (35.0-46.0); HEMO FLAGS DIFF FINAL; LYMPH % 11.8 % (9.0-44.0); LYMPHOCYTE # 1.9 TH/MM3 (1.0-4.8); MEAN CELL VOLUME 91.2 FL (80.0-100.0); MEAN CORPUSCULAR HEMOGLOBIN 29.6 PG (27.0-34.0); MEAN CORPUSCULAR HGB CONC 32.4 % (32.0-36.0); MONO % 4.4 % (0.0-8.0); NEUT % 83.7 % (16.0-70.0); PLATELET COUNT 102 TH/MM3 (150-450); RED BLOOD COUNT 3.58 MIL/MM3 (4.00-5.30); RED CELL DISTRIBUTION WIDTH 15.2 % (11.6-17.2); WHITE BLOOD COUNT 15.8 TH/MM3 (4.0-11.0)
[2017-02-26 06:29] LABS: BICARBONATE 24.2 MEQ/L (21.0-32.0); POTASSIUM 3.1 MEQ/L (3.5-5.1)
[2017-02-26] MEDS: INSULIN NovoLIN REGULAR SUPPLEMENTAL SCALE SQ SCH ×4 (07:00→21:04)
[2017-02-26] MEDS: RESP: ALBUTEROL 2.5 MG/IPRATROPIUM 0.5 MG NEB (SCH) NEB ×4 (07:44→19:27)
[2017-02-26] MEDS: HEPARIN SODIUM - SQ 10,000 UNITS/ML VIAL SQ SCH ×2 (07:48→15:48)
[2017-02-26] MEDS: CEFEPIME INJ 2,000 MG in SODIUM CHLORIDE 0.9% INJ 100 ML IV SCH ×2 (07:48→15:46)
[2017-02-26] MEDS: SODIUM CHLORIDE 0.9% FLUSH 10 ML FLUSH IV FLUSH SCH ×2 (07:51→21:03)
[2017-02-26] MEDS ORDERED: VANCOMYCIN 1,000 MG/NS 250 ML IV SCH ×2 (10:00)
[2017-02-26 10:46] LABS: BLOOD GAS BASE EXCESS -3.6 mmol/L (-2-2); BLOOD GAS CARBOXYHEMOGLOBIN 1.7 % (0-4); BLOOD GAS HCO3 20 mmol/L (22-26); BLOOD GAS METHEMOGLOBIN 0.9 % (0-2); BLOOD GAS O2 HGB SATURATION 96 % (90-100); BLOOD GAS PCO2 29 mmHg (38-42); BLOOD GAS PO2 97 mmHg (61-120); BLOOD GAS TOTAL HGB 10.3 G/DL (12.0-16.0); CRITICAL VALUE NO; DRAW SITE RT RADIAL; LITER FLOW 3 L/M; NUMBER OF ARTERIAL PUNCTURES 1; OXYGEN DEVICE NASAL CANNULA; STAT NO; TEMP CORR TO 98.6; ULNAR PULSE PRESENT
[2017-02-26] MEDS ORDERED: POTASSIUM CHLORIDE 20 MEQ PWD PACKET PO SCH (11:00)
[2017-02-26] MEDS: D5W + KCL 20 MEQ INJ 1,000 ML IV SCH (11:07)
--- NOTE | 2017-02-26 12:36 | HHI.PR ---
Subjective Remarks Patient resting in bed, she is not on nasal cannula 3 L, she is nonverbal but seems to be her baseline as per the son The [id number] was at the bedside I discussed with her Also discussed with the nurse, lactic acid decreased from yesterday, sodium is 160, WBC decreased today Per the family they still leaning toward comfort care, I placed consult for palliative care Objective Vitals Vital Signs Date Time Temp Pulse Resp B/P Pulse Ox O2 Delivery O2 Flow Rate FiO2 02/26/17 11:00 93 02/26/17 08:00 96 Nasal Cannula 3.00 02/26/17 08:00 99.0 89 22 104/57 98 02/26/17 08:00 89 02/26/17 07:45 99 Nasal Cannula 3.00 02/26/17 06:00 83 02/26/17 04:38 97 Nasal Cannula 3.00 02/26/17 04:30 98 Nasal Cannula 3.00 02/26/17 04:00 88 02/26/17 04:00 96.7 88 20 104/57 18 02/26/17 03:22 99 Venturi Mask 6.00 35 02/26/17 03:00 98 Venturi Mask 35 02/26/17 02:00 94 02/26/17 00:18 99 30 02/26/17 00:00 93 02/26/17 00:00 97.2 93 20 115/57 99 02/25/17 22:00 103 02/25/17 20:32 100 30 02/25/17 20:00 109 02/25/17 20:00 97.0 109 20 99/56 99 02/25/17 19:00 98 Bi-Pap 40 02/25/17 18:00 98 Bi-Pap 40 02/25/17 18:00 116 02/25/17 18:00 97.2 116 28 94/75 98 02/25/17 15:35 97 40 02/25/17 14:21 99.3 115 35 114/66 99 BiPAP 40 02/25/17 12:50 100.8 123 28 132/73 98 BiPAP I/O 02/25/17 02/25/17 02/25/17 02/26/17 02/26/17 02/26/17 07:00 15:00 23:00 07:00 15:00 23:00 Intake Total 608 ml 834 ml Output Total 1050 ml 650 ml Balance -442 ml 184 ml Intake IV Total 608 ml 834 ml Output Urine Total 1050 ml 650 ml Result Diagram: 02/26/17 0500 02/26/17 0500 Objective Remarks GENERAL: This is a chronically ill appearing 70 years old female on nasal cannula looks in mild respiratory distress SKIN: No rashes, warm and dry HEAD: Atraumatic. Normocephalic. EYES: Pupils equal round and reactive. ENT: Nose without bleeding, or drainage, Airway patent. NECK: Trachea midline. Supple CARDIOVASCULAR: Regular tachycardia RESPIRATORY: Fair air entry bilaterally. With using respiratory muscles GASTROINTESTINAL: Abdomen soft, non-tender, nondistended. Positive bowel sounds MUSCULOSKELETAL: Extremities without clubbing, cyanosis, or edema. Pedal pulses appreciated NEUROLOGICAL: Patient lethargic she is having lower extremity upper extremity spontaneous movement nonpurposeful A/P Assessment and Plan 02/26: Patient relatively improved from yesterday lactic acid decrease as well as WBC, she is weaned from BiPAP she is on 3 L nasal cannulae now Sodium is 160>> change iv fluid to D5 water to replace water deficit almost 2 L with close monitoring of BMP(D/W nurse Jessica) Will continue on iv antibiotic Solu-Medrol O2 Consult palliative care to help addressing goal of treatment at this point considering patient is relatively improving Repeated ABG shows slight improvement in acidosis pH 7.45 dropped from 7.56 yesterday Hypokalemia potassium 3.1, added KCl to iv fluid with 1 dose of by mouth repeat BMP in a.m. Initial A/P: 71 years old female admitted from half-way with Acute respiratory failure due to left base pneumonia HAP Severe sepsis due to LLL pneumonia HAP(fever 103, leukocytosis 18 K with left shift, tachycardia 123 and tachypnea, lactic acidosis) Acute metabolic Lactic acidosis 2.3 increased to 5, with the respiratory compensation, I personally reviewed ABG History of hypertension H/O diabetes mellitus Hyperlipidemia DVT prophylaxis Advance directive CODE STATUS changed to DNR per the son and the POA after discussion with me and the ED physician, nurse witnessed Plan: Started on iv fluid boluses and maintenance to help with the sepsis Broad Iv antibiotic cefepime Levaquin and Vanco DuoNeb, O2, Solu-Medrol iv BiPAP as needed Her symptoms are reviewed ABG and EKG showing metabolic acidosis with respiratory compensation PCO2 27, EKG showing sinus tachycardia No intubation per the son patient is DNR Vasotec for hypertension as needed Hospice consult her son requests Adeel Younger MD February 26, 2017 12:36
[2017-02-26] MEDS: LEVOFLOXACIN 750 MG PREMIX INJ 150 ML IV SCH (15:48)
--- NOTE | 2017-02-26 17:06 | PD.CONS ---
Consult Service Palliative Care Consult Requested By Dr. Younger . Primary Care Physician No Primary Care Physician . Reason for Consultation a. To assist with evaluation and management of symptoms including: Dyspnea , restlessness b. To assist medical decision maker(s) with: better understanding of current medical conditions; weighing benefits/burdens of medical treatment options; making medical treatment decisions. . HPI History of Present Illness This 71-year-old female, with a past history of Alzheimer's dementia for several years, a remote history of CVA, hyperlipidemia, diabetes, and hypertension, was moved to this area by her son on 02/08/17 and placed in [facility]. She has been declining rapidly over the past few months, and has become nonverbal and bedbound. While she was still in [place], she had repeated falls, a couple UTI infections, and has had another falling UTI after moving here. She was brought to the emergency department on 02/25/17 because of the appearance of dyspnea and fever. Her oxygen saturation was 85% with nasal cannula oxygen on arrival. In the emergency department, findings included: * Temp 103.3, pulse 117, respirations 28, blood pressure 122/67 * BiPAP was in use, the patient was nonverbal, not following commands * White count 18.2, hemoglobin 14.4 * Sodium 149, creatinine 0.97, albumin 2.6 * CT brain without acute findings * Chest x-ray with left base infiltrate Cultures were obtained, antibiotics were begun, and the patient was admitted. As expected, she remained nonverbal and bedbound. Her son was present and discussing the de-escalation of care, and Palliative Care was consulted to assist with symptom management, and to enter into discussions with the son regarding the patient's illnesses, prognosis, and the benefits and burdens of the various options now. . Function/Cognitive Trajectory In recent months, the patient was bedbound and nonverbal, requiring total care for all ADLs. She has had a PEG tube the past couple years. . Review of Systems ROS Limitations: Clinical Condition Constitutional: COMPLAINS OF: Fever, Weight loss Endocrine: DENIES: Polyuria Eyes: DENIES: Eye inflammation Ears, nose, mouth, throat: DENIES: Epistaxis Respiratory: COMPLAINS OF: Cough, Shortness of breath Cardiovascular: DENIES: Syncope Gastrointestinal: DENIES: Bloody stools, Constipation, Diarrhea, Vomiting, Vomiting blood Genitourinary: DENIES: Hematuria Musculoskeletal: DENIES: Joint Swelling Integumentary: DENIES: Rash Hematologic/Lymphatics: DENIES: Bruising Immunologic/Allergic: DENIES: Urticaria Neurologic: DENIES: Localized weakness, Seizures Psychiatric: COMPLAINS OF: Confusion (chronic), Agitation (restlessness) Past Family Social History Coded Allergies: Haldol (Verified Allergy, Unknown, unknown, 02/25/17) Past Medical History * End-stage Alzheimer's dementia * Pneumonia * Recurrent infections for several months * Remote history of CVA * Hyperlipidemia * Diabetes * Hypertension . Past Surgical History * G -tube placement . Reported Medications Humulin R Inj (Insulin Human Regular) 1,000 Unit/10 Ml Vial 5 Units SQ HS Dulcolax Supp (Bisacodyl) 10 Mg Supp 10 Mg RECTAL DAILY PRN Milk of Magnesia Liq (Magnesium Hydroxide) 400 Mg/5 Ml Susp 30 Ml PO HS PRN Enema Disposable (Sodium Phosphates) 1 Sully Sully 1 Applic RECTAL DAILY PRN Citroma Liq (Magnesium Citrate) 300 Ml Liq 300 Ml PO DAILY PRN Amlodipine-Atorvastatin 10-10 Mg Tab 1 Tab G-TUBE HS Aspirin Adult Low Strength (Aspirin) 81 Mg Tabdr 81 Mg G-TUBE DAILY Galantamine (Galantamine Hydrobromide) 8 Mg Tab 8 Mg G-TUBE DAILY IN THE PM Multivitamin Liq (Multiple Vitamins W/ Minerals Liq) 1 Liq Liq 5 Ml G-TUBE DAILY Tylenol (Acetaminophen) 325 Mg Tab 650 Mg PO Q4H PRN Lactobacillus Acidophilus 1 Tab Tab 1 Tab G-TUBE BID Namenda (Memantine) 10 Mg Tab 10 Mg G-TUBE BID Metformin (Metformin HCl) 500 Mg Tab 500 Mg G-TUBE BID . Current Medications Medications (Trade) Dose Ordered Sig/Vandana Route Start Time Stop Time Status Last Admin Cefepime HCl 2000 mg/Sodium Chloride 100 ml @ 200 mls/hr Q8H IV 02/25/17 16:00 02/26/17 15:46 (Levaquin 750 Mg Premix Inj) 150 ml @ 100 mls/hr Q24H IV 02/25/17 16:00 02/26/17 15:48 Methylprednisolone Sodium Succinate 40 mg 40 mg Q12H IV 02/25/17 17:00 02/26/17 15:47 (Vancomycin Consult Pharmacy) 0 ml @ 0 mls/hr UNSCH OTHER 5/1/17 15:00 (NS Flush) 2 ml UNSCH PRN IV FLUSH 02/25/17 15:00 (NS Flush) 2 ml BID IV FLUSH 02/25/17 21:00 02/26/17 07:51 (Tylenol) 650 mg Q4H PRN PO 02/25/17 15:00 (Zofran Inj) 4 mg Q6H PRN IVP 02/25/17 15:00 (Heparin Inj) 5,000 units Q8H SQ 02/25/17 16:00 02/26/17 15:48 (Narcan Inj) 0.4 mg UNSCH PRN IV 02/25/17 15:00 Miscellaneous Information SPECIFIC LAB TO BE DRAWN:VANCOMYCIN TROUGH DATE TO... ONCE ONCE .XX 02/28/17 09:45 02/28/17 09:46 (D50w (Vial) Inj) 25 ml UNSCH PRN IV PUSH 02/25/17 16:30 (Glucagon Inj) 1 mg UNSCH PRN OTHER 02/25/17 16:30 (Vasotec Inj) 1.25 mg Q6H PRN IV PUSH 02/25/17 17:00 Lorazepam 0.5 mg 0.5 mg Q6H PRN IV PUSH 02/25/17 17:00 Potassium Chloride/Dextrose 1,000 ml @ 80 mls/hr [id number] IV 02/26/17 11:00 02/26/17 11:07 (Vancomycin Inj/ NS 250 ml Inj) 250 ml @ 250 mls/hr Q12H IV 02/26/17 22:00 Family History Multiple family members have had dementia, including the patient's mother. The patient's father at a younger age, and patient's son is not sure of the cause of . . Substance Use Tobacco: Minimal smoking in her younger years but none for many years Alcohol: None Prescription med abuse: None Illicits: None . Psychosocial History The patient was born in [facility]. She came to [place] about 30 years ago and then worked in [place] and [place] before returning to [facility] in 2006. About 2 years ago, as her dementia progressed, her son moved her to [place], and when he moved here to [place] he then moved her here about 3 weeks ago. The patient was once, . She has one son. She worked in the [employer] for many years. She is primarily Danish-speaking although the son says she can understand some Sammarinese. . Spiritual/Cultural Factors The patient is Yazdanism and spirituality has been very important for her over the years. The son would like a cash accounting clerk to come and visit her. . Durable Power of Forms Designer: Completed, but not made available Family/friends goals: The patient's son is the healthcare proxy decision-maker, and he would like to transition to comfort only, getting hospice services, transferring the patient back to the senior living, and then focusing on comfort only. He does not want antibiotics or artificial nutrition to prolong his mother's dying process anymore. . Ethical and Legal Issues There are no ethical issues that would impact her care or decision-making at this time. The patient does not have capacity for decision-making and she will not regain that capacity. Her son Saad is the healthcare proxy decision-maker as he is her only child. . Physical Exam Vital Signs Date Time Temp Pulse Resp B/P Pulse Ox O2 Delivery O2 Flow Rate FiO2 02/26/17 14:00 82 02/26/17 12:00 98.7 96 22 117/56 98 02/26/17 12:00 96 02/26/17 11:00 93 02/26/17 08:00 96 Nasal Cannula 3.00 02/26/17 08:00 99.0 89 22 104/57 98 02/26/17 08:00 89 02/26/17 07:45 99 Nasal Cannula 3.00 02/26/17 06:00 83 02/26/17 04:38 97 Nasal Cannula 3.00 02/26/17 04:30 98 Nasal Cannula 3.00 02/26/17 04:00 88 02/26/17 04:00 96.7 88 20 104/57 18 02/26/17 03:22 99 Venturi Mask 6.00 35 02/26/17 03:00 98 Venturi Mask 35 02/26/17 02:00 94 02/26/17 00:18 99 30 02/26/17 00:00 93 02/26/17 00:00 97.2 93 20 115/57 99 02/25/17 22:00 103 02/25/17 20:32 100 30 02/25/17 20:00 109 02/25/17 20:00 97.0 109 20 99/56 99 02/25/17 19:00 98 Bi-Pap 40 02/25/17 18:00 98 Bi-Pap 40 02/25/17 18:00 116 02/25/17 18:00 97.2 116 28 94/75 98 02/25/17 02/26/17 19:00 07:00 Intake Total 1442 ml Output Total 500 ml 1200 ml Balance -500 ml 242 ml IV Total 1442 ml Output Urine Total 500 ml 1200 ml Exam CONSTITUTIONAL/GENERAL: This is a nonverbal, weak patient in the [facility], in no apparent distress. TUBES/LINES/DRAINS: Castillo, IV, nasal cannula SKIN: No jaundice, rashes, or lesions. No wounds seen anteriorly. Skin temperature appropriate. Not diaphoretic. HEAD: Atraumatic. Normocephalic. EYES: Pupils equal and round and reactive. Extraocular motions intact. No scleral icterus. No injection or drainage. Fundi not examined. ENT: Hearing grossly normal. Nose without bleeding or purulent drainage. NECK: Trachea midline. Supple, nontender. No palpable thyroid enlargement or nodularity. CARDIOVASCULAR: Regular rate and rhythm without murmurs, gallops, or rubs. No JVD. RESPIRATORY/CHEST: Symmetric, unlabored respirations. Scattered rhonchi. GASTROINTESTINAL: Abdomen soft, non-tender, nondistended. No hepato-splenomegaly , or palpable masses. No guarding. Bowel sounds present. GENITOURINARY: Without palpable bladder distension. Castillo catheter in place. MUSCULOSKELETAL: Extremities without clubbing, cyanosis, or edema. No joint tenderness or effusion noted. No calf tenderness. No mottling or clubbing. LYMPHATICS: No palpable cervical or supraclavicular adenopathy. NEUROLOGICAL: Appears awake and alert. She is nonverbal, occasionally moves 1 foot, does not follow command. PSYCHIATRIC: No obvious anxiety or restlessness at this time . Diagnostic Tests Laboratory Laboratory Tests Test 02/25/17 02/25/17 02/25/17 02/25/17 09:53 10:05 10:08 10:10 Blood Gas Puncture Site LT RADIAL Blood Gas Patient Temperature 98.6 Blood Gas HCO3 24 mmol/L (22-26) Blood Gas Base Excess 1.7 mmol/L (-2-2) Blood Gas Oxygen Saturation 94 % (90-100) Arterial Blood pH 7.56 (7.380-7.420) Arterial Blood Partial 27 mmHg (38-42) Pressure CO2 Arterial Blood Partial 67 mmHG Pressure O2 (61-120) Arterial Blood Oxygen Content 19.2 Vol % (12.0-20.0) Arterial Blood 1.2 % (0-4) Carboxyhemoglobin Arterial Blood Methemoglobin 0.3 % (0-2) Blood Gas Hemoglobin 14.6 G/DL (12.0-16.0) Oxygen Delivery Device Non-Rebreathing Mask Blood Gas Inspired Oxygen 100 % White Blood Count 18.2 TH/MM3 (4.0-11.0) Red Blood Count 4.93 MIL/MM3 (4.00-5.30) Hemoglobin 14.4 GM/DL (11.6-15.3) Hematocrit 44.2 % (35.0-46.0) Mean Corpuscular Volume 89.6 FL (80.0-100.0) Mean Corpuscular Hemoglobin 29.3 PG (27.0-34.0) Mean Corpuscular Hemoglobin 32.7 % Concent (32.0-36.0) Red Cell Distribution Width 15.5 % (11.6-17.2) Platelet Count 176 TH/MM3 (150-450) Mean Platelet Volume 10.9 FL (7.0-11.0) Neutrophils (%) (Auto) 83.9 % (16.0-70.0) Lymphocytes (%) (Auto) 9.5 % (9.0-44.0) Monocytes (%) (Auto) 6.3 % (0.0-8.0) Eosinophils (%) (Auto) 0.0 % (0.0-4.0) Basophils (%) (Auto) 0.3 % (0.0-2.0) Neutrophils # (Auto) 15.3 TH/MM3 (1.8-7.7) Lymphocytes # (Auto) 1.7 TH/MM3 (1.0-4.8) Monocytes # (Auto) 1.2 TH/MM3 (0-0.9) Eosinophils # (Auto) 0.0 TH/MM3 (0-0.4) Basophils # (Auto) 0.1 TH/MM3 (0-0.2) CBC Comment DIFF FINAL Differential Comment Sodium Level 149 MEQ/L (136-145) Potassium Level 3.9 MEQ/L (3.5-5.1) Chloride Level 114 MEQ/L (98-107) Carbon Dioxide Level 28.0 MEQ/L (21.0-32.0) Anion Gap 7 MEQ/L (5-15) Blood Urea Nitrogen 46 MG/DL (7-18) Creatinine 0.97 MG/DL (0.50-1.00) Estimat Glomerular Filtration 56 ML/MIN (>89) Rate Random Glucose 378 MG/DL (74-106) Calcium Level 8.5 MG/DL (8.5-10.1) Total Bilirubin 0.7 MG/DL (0.2-1.0) Aspartate Amino Transf 17 U/L (15-37) (AST/SGOT) Alanine Aminotransferase 31 U/L (10-53) (ALT/SGPT) Alkaline Phosphatase 77 U/L (45-117) Total Protein 7.2 GM/DL (6.4-8.2) Albumin 2.6 GM/DL (3.4-5.0) Lactic Acid Level 3.7 mmol/L (0.4-2.0) Urine Color YELLOW (YELLW/STRAW) Urine Turbidity HAZY (CLEAR) Urine pH 5.5 (5.0-8.5) Urine Specific [place] 1.024 (1.002-1.035) Urine Protein TRACE mg/dL (NEG-TRACE) Urine Glucose (UA) 1000 mg/dL (NEG) Urine Ketones NEG mg/dL (NEG) Urine Occult Blood TRACE (NEG) Urine Nitrite NEG (NEG) Urine Bilirubin NEG (NEG) Urine Urobilinogen LESS THAN 2.0 MG/DL (LESS THAN 2.0) Urine Leukocyte Esterase NEG (NEG) Urine RBC 1 /hpf (0-3) Urine WBC 1 /hpf (0-5) Urine Squamous Epithelial 5 /hpf (0-5) Cells Urine Bacteria RARE /hpf (NONE) Urine Mucus FEW /lpf (OCC) Microscopic Urinalysis Comment CATH-CULTURE IND Test 02/25/17 02/25/17 02/26/17 02/26/17 15:36 20:05 00:08 05:00 Lactic Acid Level 5.2 mmol/L 2.7 mmol/L 3.4 mmol/L (0.4-2.0) (0.4-2.0) (0.4-2.0) White Blood Count 15.8 TH/MM3 (4.0-11.0) Red Blood Count 3.58 MIL/MM3 (4.00-5.30) Hemoglobin 10.6 GM/DL (11.6-15.3) Hematocrit 32.7 % (35.0-46.0) Mean Corpuscular Volume 91.2 FL (80.0-100.0) Mean Corpuscular Hemoglobin 29.6 PG (27.0-34.0) Mean Corpuscular Hemoglobin 32.4 % Concent (32.0-36.0) Red Cell Distribution Width 15.2 % (11.6-17.2) Platelet Count 102 TH/MM3 (150-450) Mean Platelet Volume 11.3 FL (7.0-11.0) Neutrophils (%) (Auto) 83.7 % (16.0-70.0) Lymphocytes (%) (Auto) 11.8 % (9.0-44.0) Monocytes (%) (Auto) 4.4 % (0.0-8.0) Eosinophils (%) (Auto) 0.0 % (0.0-4.0) Basophils (%) (Auto) 0.1 % (0.0-2.0) Neutrophils # (Auto) 13.2 TH/MM3 (1.8-7.7) Lymphocytes # (Auto) 1.9 TH/MM3 (1.0-4.8) Monocytes # (Auto) 0.7 TH/MM3 (0-0.9) Eosinophils # (Auto) 0.0 TH/MM3 (0-0.4) Basophils # (Auto) 0.0 TH/MM3 (0-0.2) CBC Comment DIFF FINAL Differential Comment Sodium Level 160 MEQ/L (136-145) Potassium Level 3.1 MEQ/L (3.5-5.1) Chloride Level 130 MEQ/L (98-107) Carbon Dioxide Level 24.2 MEQ/L (21.0-32.0) Anion Gap 6 MEQ/L (5-15) Blood Urea Nitrogen 22 MG/DL (7-18) Creatinine 0.54 MG/DL (0.50-1.00) Estimat Glomerular Filtration 111 ML/MIN Rate (>89) Random Glucose 169 MG/DL (74-106) Calcium Level 8.1 MG/DL (8.5-10.1) Test 02/26/17 02/26/17 10:38 11:45 Blood Gas Puncture Site RT RADIAL Blood Gas Patient Temperature 98.6 Blood Gas HCO3 20 mmol/L (22-26) Blood Gas Base Excess -3.6 mmol/L (-2-2) Blood Gas Oxygen Saturation 96 % (90-100) Arterial Blood pH 7.45 (7.380-7.420) Arterial Blood Partial 29 mmHg (38-42) Pressure CO2 Arterial Blood Partial 97 mmHg Pressure O2 (61-120) Arterial Blood Oxygen Content 14.0 Vol % (12.0-20.0) Arterial Blood 1.7 % (0-4) Carboxyhemoglobin Arterial Blood Methemoglobin 0.9 % (0-2) Blood Gas Hemoglobin 10.3 G/DL (12.0-16.0) Oxygen Delivery Device NASAL CANNULA Blood Gas Liter Flow 3 L/M Lactic Acid Level 1.3 mmol/L (0.4-2.0) Result Diagram: 02/26/17 0500 02/26/17 0500 Microbiology Microbiology Date/Time Procedure Status Source Growth 02/25/17 10:00 Aerobic Blood Culture - Preliminary Resulted Blood Peripheral NO GROWTH IN 1 DAY 02/25/17 10:00 Anaerobic Blood Culture - Preliminary Resulted Blood Peripheral NO GROWTH IN 1 DAY 02/25/17 10:08 Aerobic Blood Culture - Preliminary Resulted Blood Peripheral NO GROWTH IN 1 DAY 02/25/17 10:08 Anaerobic Blood Culture - Preliminary Resulted Blood Peripheral NO GROWTH IN 1 DAY 02/25/17 10:10 Urine Culture - Final Complete Urine Catheterized Urine 50-100,000 CFU/ML MIXED GRAM POSITIVE... Imaging Last Impressions Head CT 02/25/17 1009 Signed Impressions: Service Date/Time: Saturday, February 25, 2017 10:46 - CONCLUSION: No acute intracranial injury. Stable moderate ventriculomegaly Darien Vergara MD Chest X-Ray 02/25/17 1000 Signed Impressions: Service Date/Time: Saturday, February 25, 2017 10:58 - CONCLUSION: Mild left base parenchymal opacity Darien Vergara MD Patient/Family Conference Present at Family Conference: Patient's son Saad Torres . Family Conference Time (mins): 41 Family Conference Location: Consult Room Issues Discussed: * Palliative care role, purpose, approach * Hospice care role, purpose, approach * Additional medical, psychosocial, and spiritual history * Patients general health, functional status, and cognitive changes in the months leading up to the current hospitalization * Patient/family understanding of the current medical problems * Patient/family understanding of prognosis * Patients goals of care as best understood from advance directives and/or conversations and/or values * Current medical treatment options and benefits/burdens of those options * Likely scenarios comparing ongoing aggressive care with a transition to comfort measures only * Questions answered to the best of my ability * Palliative care contact information provided The patient's son is the healthcare proxy decision-maker, and he would like to transition to comfort only, getting hospice services, transferring the patient back to the senior living, and then focusing on comfort only. He does not want antibiotics or artificial nutrition to prolong his mother's dying process anymore. . Assessment and Plan Disease Oriented Problem List: (1) end-stage Alzheimer's dementia (2) pneumonia (3) recurrent infections for several months (4) hypertension (5) diabetes (6) remote history of CVA (7) hyperlipidemia Symptom Scale: (1) restlessness 0-10 Scale: Unable to quantify (2) dyspnea 0-10 Scale: 1 Pertinent Non-Medical Issues Psychosocial: Originally from [facility] [place]. once, , 1 son Saad. Worked in the [employer]. Spiritual: Yazdanism, would like cash accounting clerk visits Legal: The patient does not have capacity for decision-making and she will not regain that capacity. Her son Saad is the healthcare proxy decision-maker as he is her only child. Ethical issues impacting care: None . Important Contacts Son: Saad Torres [phone] [id number] Helen [phone] . Prognosis This patient is terminal. She has end-stage dementia, has been declining rapidly, and has had recurrent infections. She is appropriate for hospice services. . Code Status: No Code Plan * DO NOT RESUSCITATE * DECISION-MAKING: The patient does not have capacity for decision-making and she will not regain that capacity. Her son Saad is the healthcare proxy decision-maker as he is her only child. * GOALS: The patient's son would like to transition her care to comfort only, getting hospice services, transferring the patient back to the senior living, and then focusing on comfort only. He does not want antibiotics or artificial nutrition to prolong his mother's dying process anymore. * SYMPTOMS: Her dyspnea seems to be managed fairly well now. She does not have obvious pain. No new medication recommendations at this time. * Splicing Machine Operator visit to be requested. * Hospice consult placed. * Palliative Care will continue to follow the patient during this hospitalization. . Time Spent Total Floor Time (mins): 80 Face to Face Time (mins): 11 >50% Counseling/Coord of Care: Yes (d/w RN) Thank you for the opportunity to participate in the care of Ms. Skelton. Attestation To help prompt me to consider important information that might be impacting today's encounter and assessment, information from prior notes written by myself or my colleagues may have been "brought forward" into today's note. My signature on this note, however, is an attestation that I personally performed the exam, history, and/or decision-making noted today, and, unless otherwise indicated, the interactions with patient, family, and staff as well as the review of records all occurred today. I also attest that the listed assessment and stated plan reflect my best clinical judgment today based on the combination of historical information, prior notes, and today's exam/ interactions. When time spent is documented, it refers only to time spent today by the signer, or if indicated, combined time spent today by collaborating physician/nurse practitioner. Aletha Barragan MD February 26, 2017 17:06
[2017-02-26] MEDS: VANCOMYCIN 1,000 MG/NS 250 ML IV SCH ×2 (21:03)
[2017-02-26 21:29] LABS: BICARBONATE 20.8 MEQ/L (21.0-32.0); MAGNESIUM 2.2 MG/DL (1.5-2.5); POTASSIUM 3.6 MEQ/L (3.5-5.1)
[2017-02-27] VITALS (8 sets, daily range): BP systolic 98–127; BP diastolic 57–60; PULSE 49–88; RESP 16–19; TEMP 97.6–98.9; O2SAT 97–100
[2017-02-27] MEDS: D5W + KCL 20 MEQ INJ 1,000 ML IV SCH ×2 (00:13→12:00)
[2017-02-27] MEDS: CEFEPIME INJ 2,000 MG in SODIUM CHLORIDE 0.9% INJ 100 ML IV SCH ×2 (00:14→08:04)
[2017-02-27] MEDS: HEPARIN SODIUM - SQ 10,000 UNITS/ML VIAL SQ SCH ×2 (00:20→08:00)
[2017-02-27 03:27] LABS: BICARBONATE 23.4 MEQ/L (21.0-32.0); MAGNESIUM 2.2 MG/DL (1.5-2.5); POTASSIUM 4.3 MEQ/L (3.5-5.1)
[2017-02-27] MEDS: methylPREDNISolone SOD SUCC 40 MG/1 ML VIAL IV SCH (05:22)
[2017-02-27] MEDS: INSULIN NovoLIN REGULAR SUPPLEMENTAL SCALE SQ SCH ×2 (06:23→11:00)
[2017-02-27] MEDS: SODIUM CHLORIDE 0.9% FLUSH 10 ML FLUSH IV FLUSH SCH (08:04)
[2017-02-27] MEDS: RESP: ALBUTEROL 2.5 MG/IPRATROPIUM 0.5 MG NEB (SCH) NEB ×2 (09:01→12:23)
[2017-02-27] MEDS: VANCOMYCIN 1,000 MG/NS 250 ML IV SCH ×2 (10:00)
[2017-02-27] MEDS ORDERED: PRED10PA PO (13:40)
[2017-02-27] MEDS ORDERED: NOVORP2 SQ (13:40)
[2017-02-27] MEDS ORDERED: LEVA750T PO (13:40)
--- NOTE | 2017-02-27 14:09 | HHI.PR ---
Subjective Remarks Patient resting in bed on nasal cannula Sodium improved today, lactic acid act up to 2.3 Family decided on going back to SNF with hospice service, they decline aggressive management Objective Vitals Vital Signs Date Time Temp Pulse Resp B/P Pulse Ox O2 Delivery O2 Flow Rate FiO2 02/27/17 12:00 97.6 53 19 127/60 98 02/27/17 12:00 49 02/27/17 09:01 97 Nasal Cannula 3.00 02/27/17 08:00 49 02/27/17 08:00 97.6 53 19 127/60 98 02/27/17 06:00 49 02/27/17 04:00 98.9 77 16 107/59 100 02/27/17 04:00 77 02/27/17 02:00 88 02/27/17 00:00 97.8 81 16 98/57 99 02/27/17 00:00 81 02/26/17 22:00 87 02/26/17 20:00 97.6 81 19 101/54 98 02/26/17 20:00 81 02/26/17 19:27 100 Nasal Cannula 3.00 02/26/17 19:00 100 Nasal Cannula 3.00 02/26/17 18:00 98 02/26/17 16:00 91 02/26/17 16:00 98.4 91 20 102/70 98 I/O 02/26/17 02/26/17 02/26/17 02/27/17 02/27/17 02/27/17 06:59 14:59 22:59 06:59 14:59 22:59 Intake Total 834 ml 1394 ml 1183 ml 771 ml Output Total 650 ml 1300 ml 900 ml 600 ml Balance 184 ml 94 ml 283 ml 171 ml Intake Oral 0 ml IV Total 834 ml 1394 ml 1183 ml 771 ml Output Urine Total 650 ml 1300 ml 900 ml 600 ml # Bowel Movements 0 1 Result Diagram: 02/26/17 0500 02/27/17 0244 Objective Remarks GENERAL: This is a chronically ill appearing 70 years old female on nasal cannula looks in mild respiratory distress SKIN: No rashes, warm and dry HEAD: Atraumatic. Normocephalic. EYES: Pupils equal round and reactive. ENT: Nose without bleeding, or drainage, Airway patent. NECK: Trachea midline. Supple CARDIOVASCULAR: Regular tachycardia RESPIRATORY: Fair air entry bilaterally. With using respiratory muscles GASTROINTESTINAL: Abdomen soft, non-tender, nondistended. Positive bowel sounds MUSCULOSKELETAL: Extremities without clubbing, cyanosis, or edema. Pedal pulses appreciated NEUROLOGICAL: Patient lethargic she is having lower extremity upper extremity spontaneous movement nonpurposeful A/P Assessment and Plan 02/26: Patient relatively improved from yesterday lactic acid decrease as well as WBC, she is weaned from BiPAP she is on 3 L nasal cannulae now Sodium is 160>> change iv fluid to D5 water to replace water deficit almost 2 L with close monitoring of BMP(D/W nurse Ms. Lopez) Will continue on iv antibiotic Solu-Medrol O2 Consult palliative care to help addressing goal of treatment at this point considering patient is relatively improving Repeated ABG shows slight improvement in acidosis pH 7.45 dropped from 7.56 yesterday Hypokalemia potassium 3.1, added KCl to iv fluid with 1 dose of by mouth repeat BMP in a.m. 02/27: Patient on nasal cannula, lactic acid neck up to 2.3 today, sodium improved to 153, family decided on going back to SNF with hospice service Initial A/P: 71 years [facility] Acute respiratory failure due to left base pneumonia HAP Severe sepsis due to LLL pneumonia HAP(fever 103, leukocytosis 18 K with left shift, tachycardia 123 and tachypnea, lactic acidosis) Acute metabolic Lactic acidosis 2.3 increased to 5, with the respiratory compensation, I personally reviewed ABG History of hypertension H/O diabetes mellitus Hyperlipidemia DVT prophylaxis Advance directive CODE STATUS changed to DNR per the son and the POA after discussion with me and the ED physician, nurse witnessed Plan: Started on iv fluid boluses and maintenance to help with the sepsis Broad Iv antibiotic cefepime Levaquin and Vanco DuoNeb, O2, Solu-Medrol iv BiPAP as needed Her symptoms are reviewed ABG and EKG showing metabolic acidosis with respiratory compensation PCO2 27, EKG showing sinus tachycardia No intubation per the son patient is DNR Vasotec for hypertension as needed Hospice consult her son requests Adeel Younger MD February 27, 2017 14:09
[2017-02-28] MEDS ORDERED: PHARMACY ORDERED LAB ONE (09:45)
== END 2017-02-27 14:45 | disposition hospice, inpatient (51) | DRG 871 ==
LOC: NEPE 09:53 → NEDA 12:47 → HIME 17:20
PROVIDERS: ADMIT Hospitalist; ATTEND Hospitalist
DX: A41.9 Sepsis, unspecified organism (principal); J18.9 Pneumonia, unspecified organism; J96.01 Acute respiratory failure with hypoxia; N39.0 Urinary tract infection, site not specified; E11.9 Type 2 diabetes mellitus without complications; G30.9 Alzheimer's disease, unspecified; F02.80 Dementia in other diseases classified elsewhere, unspecified severity, without behavioral disturbance, psychotic disturbance, mood disturbance, and anxiety; E78.5 Hyperlipidemia, unspecified; I10 Essential (primary) hypertension; G93.89 Other specified disorders of brain; R29.6 Repeated falls; Z51.5 Encounter for palliative care; Z66 Do not resuscitate; Z74.01 Bed confinement status; Z86.73 Personal history of transient ischemic attack (TIA), and cerebral infarction without residual deficits
CPT/HCPCS: 36600; 70450; 71010; 80048; 80053; 81001; 82805; 82948; 83605; 83735; 84100; 85025; 87040; 87086; 93005; 94002; 94003; 94640; 94664; 96365; 96375; J0692; J1644; J1956; J2920; J3370; J3480; J7030; J7050; J7613